=== PATIENT | male | born 1965 | race Caucasian/White ===

== ENCOUNTER 2019-03-13 17:11 | Emergency (ER) | payer BC, SELFPAY ==
[2019-03-13 17:13] VITALS: BP 176/120; PULSE 86; RESP 18; TEMP 36.4; O2SAT 100; BMI 27.8
--- NOTE | 2019-03-13 17:43 | CT_ITS ---
STUDY: CT ABDOMEN AND PELVIS WITHOUT CONTRAST REASON FOR EXAM: Male, 54 years old. Nausea and vomiting and abdominal pain RADIATION DOSAGE (If Supplied By Facility): DLP = ( 798.68 ) mGycm TECHNIQUE: Transaxial images were obtained from the dome of the diaphragm to the symphysis pubis without oral contrast, and without intravenous contrast. Sagittal and coronal images were reconstructed. Individualized dose optimization techniques were used for this CT. COMPARISON: None. FINDINGS: Evaluation of the abdominal viscera is limited in the absence of intravenous contrast. The visualized lung bases are clear. The visualized portions of the heart and pericardium are within normal limits. There are no calcified gallstones present. The liver demonstrates an unremarkable unenhanced appearance. The spleen is normal in size. The pancreas demonstrates an unremarkable unenhanced appearance. The adrenal glands are within normal limits. There are no obstructing renal stones. There is a right renal midpole 3.4 cm cyst and a left renal midpole 1.4 cm hypodensity, likely representing a cyst. Left renal mid pole cortical calcifications are present measuring up to 1 cm. There is no hydronephrosis. Normal visualized stomach. There is no evidence of bowel obstruction. Colonic diverticulosis is present. There is uniform wall thickening of the sigmoid colon. The appendix is not visualized, but there are no findings to suggest acute appendicitis. The aorta is normal in caliber. There is no abdominal or pelvic free air, free fluid, fluid collection or lymphadenopathy. There are no destructive osseous lesions. Multilevel degenerative changes are present at the spine. L5-S1 fusion present. CT/Abdomen/Pelvis without Cont IMPRESSION: Colonic diverticulosis with uniform wall thickening of the sigmoid colon. Considerations include inflammation/colitis, nondistention, and less likely neoplasm. Clinical correlation and compliance with sigmoidoscopy/colonoscopy schedule is recommended. Probable bilateral renal cysts and left renal cortical calcifications. Ultrasound is suggested for confirmation. Electronically Signed: Harjinder Serrano, at 18:50 EST Tel , Service support ,
--- NOTE | 2019-03-13 17:43 | EKG12_ITS ---
Test Reason : CP/EPIGASTRIC PAIN Blood Pressure : / mmHG Vent. Rate : 090 BPM Atrial Rate : 090 BPM P-R Int : 182 ms QRS Dur : 100 ms QT Int : 386 ms P-R-T Axes : 024 -40 059 degrees QTc Int : 472 ms Normal sinus rhythm Left axis deviation Moderate voltage criteria for LVH, may be normal variant Nonspecific T wave abnormality Prolonged QT Abnormal ECG Confirmed by CANDACE ELLIS ([id number]), website/blog editor RONALD CLARK ([id number]) on 03/15/2019 8:27:33 AM Referred By: JOSE/EVERT Confirmed By:CANDACE ELLIS
[2019-03-13 17:55] LABS: Absolute Lymphocyte Count 1.71 X10^3/uL (0.83-4.51); Absolute Neutrophil Count 10.1 X10^3/uL (2.0-7.7); Basophil# 0.04 X10^3/uL; Basophil% 0.3 % (0-1); Eosinophil# 0.19 X10^3/uL; Eosinophils% 1.5 % (0-5); Hematocrit 45.6 % (40-54); Hemoglobin 15.5 g/dL (13.0-16.5); Lymphocyte # 1.71 X10^3/ul (4.0); Lymphocyte % 13.5 % (19-41); Mean Corpuscular Hgb 32.4 pg (27.0-32.0); Mean Corpuscular Volume 95.4 fL (80-94); Mean Platelet Vol. 9.6 fl (6.2-12.0); Monocyte# 0.57 X10^3/uL; Monocyte% 4.5 % (0-10); NRBC Flagged by Analyzer 0 % (0-5); Neutrophil # 10.06 X10^3/uL (2.7-7.7); Neutrophil % 79.7 % (47-70); Platelet Count 254 K/mm3 (150-450); RBC Distribution Width CV 13.2 % (11.6-14.6); RBC Distribution Width SD 46.9 fl (35.1-43.9); Red Blood Count 4.78 M/mm3 (4.6-6.2); White Blood Count 12.6 K/mm3 (4.4-11.0)
[2019-03-13] MEDS: HYDROmorphone 1 MG/ML Syringe IV (17:59)
[2019-03-13] MEDS: Ondansetron 4 MG/2 ML Vial IV (17:59)
[2019-03-13] MEDS: 0.9% Normal Saline 1,000 ML 1000 ML IV (18:00)
[2019-03-13 18:08] LABS: ALB/GLOB Ratio 1.2 RATIO (0.9-2.4); AST(SGOT) 17 U/L (15-37); Alanine Aminotransfer ALT/SGPT 24 U/L (16-61); Albumin, Serum 4.3 g/dL (3.2-5.0); Alkaline Phosphatase 62 U/L (45-117); Anion Gap 7 (5-15); BUN 22 mg/dL (7-18); BUN/Creat Ratio 17.7 RATIO (10-20); Calcium,Total 9.5 mg/dL (8.5-10.1); Chloride 106 mmol/L (98-107); Creatinine, Serum 1.24 mg/dL (0.70-1.30); EST Glomerular Filtration Rate 64 mL/min (>60); Est Glom Filt Rate - Afr Amer 78 mL/min (>60); Estimated Creatinine Clearance 70.85 ml/min; Globulin 3.5 g/dL (2.2-4.2); Glucose 114 mg/dL (74-106); Lipase 184 U/L (73-393); Potassium 3.6 mmol/L (3.5-5.1); Protein, Total 7.8 g/dL (6.4-8.2); Sodium Level 140 mmol/L (136-145)
[2019-03-13 18:13] VITALS: PULSE 91; RESP 16; O2SAT 98
[2019-03-13 18:41] LABS: Lactic Acid 2.6 mmol/L (0.4-1.9)
[2019-03-13 18:43] VITALS: BP 156/115; PULSE 97; RESP 15; TEMP 37.3; O2SAT 96
--- NOTE | 2019-03-13 18:49 | ED.RN ---
DR CONSULTED ABOUT POSSIBILITY OF SEPSIS. STATES THAT THERE IS NO SOURCE AT THIS TIME. NO ADDITIONAL ORDERS PLACED AT THIS TIME. Burke ORTIZ RN [id number]
--- NOTE | 2019-03-13 18:50 | RAD_ITS ---
STUDY: X-RAY CHEST REASON FOR EXAM: Male, 54 years old. Chest pain TECHNIQUE: Frontal view of the chest COMPARISON: None. FINDINGS: The lungs are clear. There are no pleural effusions. There is no pneumothorax. The heart is normal in size. The visualized osseous structures are within normal limits. RAD/Chest 1 View (Portable) IMPRESSION: No acute thoracic pathology. Electronically Signed: Harjinder Serrano, at 19:34 EST Tel , Service support ,
[2019-03-13 19:36] VITALS: BP 146/107; PULSE 95; RESP 16; O2SAT 93
[2019-03-13 20:03] VITALS: BP 150/107; PULSE 98; PULSE 99; RESP 21; TEMP 37.2; O2SAT 96; O2SAT 97
--- NOTE | 2019-03-13 20:09 | ED.DCSUM_ITS ---
- ER Visit Summary Date of Service: 03/13/19 Chief Complaint: [Abdominal pain] History of Present Illness: The patient is a 54 M [the emergency department complaint of epigastric abdominal pain that started about 8 months ago initially. Patient has recurrent episodes of severe pain that is in the epigastric region which causes him to vomit for day or 2 and then symptoms resolved. Patient states that over the last 3 days he is vomited multiple times and continues to have crampy severe epigastric pain. He denies any blood in stool or black tarry stool. He denies any hematemesis. He denies any real chest discomfort although sometimes he feels like he has some acid coming up into his chest. Patient has no medical history. Patient is a moderate alcohol drinker. Patient has not had any prior abdominal surgeries although he has had a back surgery.] Physical Examination: [HEENT-PERRLA, EOMI. Cranial nerves II through XII grossly intact. TMs clear. Mucous membranes moist. No adenopathy. Cardiovascular-regular rate and rhythm without murmur or ectopy Lungs-clear to auscultation, chest wall stable without crepitus or subcu emphysema Abdomen-normoactive bowel sounds, soft. Patient has tenderness over the epigastric region with guarding. There is no rebound, rigidity, or cranial signs. Extremities-intact ?4, normal range of motion, normal pulses, atraumatic] Test Results: [EKG obtained on arrival showed a sinus rhythm with a ventricular rate of [address] changes. Troponin was less than 0.015. CBC with differential showed a white count of 12.6, hemoglobin 15.5, hematocrit 46, platelets 254. Chemistries unremarkable. BUN was 22 and creatinine 1.24. LFTs unremarkable. Lipase was 184. Lactate was 2.6. CT scan of the abdomen pelvis showed thickening of the sigmoid colon which could represent nondistention ve rsus colitis versus inflammation versus neoplasm. Patient also had a renal cyst and recommended obtaining potential outpatient ultrasound to evaluate further.] Emergency Department Course and Treatment: [Patient had an IV line established. Patient was medicated with a milligram of Dilaudid and 4 mg of Zofran IV. Patient was given a liter of the same fluid bolus. Patient felt significantly improved.] Treatment Plan: [I discussed with patient outpatient treatment versus admission for symptom control however patient would prefer to go home. I will give him a referral to general surgeon on-call as he may require further evaluation such as colonoscopy and endoscopy. Patient will be started on Prevacid. Patient will be given Zofran for nausea.] Patient advised to quit drinking. Disposition: [Discharged home in stable condition.] Impression: [Abdominal pain-etiology uncertain Gastritis] This note was generated with [employer] dictation software. It may contain incorrect words, spelling, and punctuation that were not noted in review of the chart prior to signing ED Disposition - Plan for ED Patient: Referrals: Care Physician,No Primary [Primary Care Provider] -
--- NOTE | 2019-03-13 20:13 | ED.DEP ---
ED Disposition - Plan for ED Patient: Instructions: EPIGASTRIC PAIN (Uncertain cause), ABDOMINAL PAIN, Unkown Cause, (Male) Prescriptions: Lansoprazole [Prevacid] 30 mg PO DAILY #30 capsule Ondansetron [Zofran Odt] 4 mg PO Q8H PRN PRN #10 tablet PRN Reason: Nausea Referrals: Care Physician,No Primary [Primary Care Provider] - Brandon Bliss MD [STAFF PHYSICIAN] - Len Shelton MD [STAFF PHYSICIAN] - 3-5 Days
[2019-03-13 20:27] VITALS: BP 150/107; PULSE 95; RESP 18; O2SAT 97
[2019-03-13 22:10] LABS: Reflex Lactate? Y
== END 2019-03-13 20:28 | disposition home or self-care (01) ==
LOC: ED 18:03
PROVIDERS: Emergency Provider Emergency Medicine
DX: R10.9 Unspecified abdominal pain (principal); K29.70 Gastritis, unspecified, without bleeding
CPT/HCPCS: 71045; 74176; 80053; 83605; 83690; 84484; 85025; 93005; 96361; 96374; 96375; 99284; J7030; A4216; J2405

== ENCOUNTER → 2019-03-19 08:51 | Outpatient (CLI) | payer BC, SELFPAY ==
[2019-03-19 08:23] VITALS: BMI 27.8
--- NOTE | 2019-03-19 08:52 | US_ITS ---
STUDY: ABDOMINAL ULTRASOUND - RIGHT UPPER QUADRANT REASON FOR VISIT: Male, 54 years old EPIGASTRIC PAIN TECHNIQUE: Ultrasound evaluation of the right upper quadrant was performed with real-time and static casper-scale imaging. TECHNICAL QUALITY: Adequate. COMPARISON: None. FINDINGS: Liver: The liver measures 15.9 cm. There is normal echogenicity of the liver. The bile ducts are within normal limits. There is hepatic color flow. The direction of portal flow is hepatopetal. There is no demonstrated mass lesion. Gallbladder: Normal distended gallbladder. The gallbladder wall measures 3.0 mm. There is a negative sonographic Stewart''s sign. There is no pericholecystic fluid. There are no gallstones. Common Bile Duct (C.B.D.): The common bile duct measures 5.0 mm. Pancreas: Normal size of the head, body and tail of the pancreas. There is normal echogenicity of the pancreas. There is no demonstrated pancreatic mass or cyst. Right Kidney: Normal size of the right kidney. The right kidney measures 10.2 cm x 6.6 cm x 6.3 cm. Normal renal cortex. The right cortex measures 1.5 cm. There is a 3.3 cm x 3.4 cm x 3.5 cm right renal cyst. There is no right hydronephrosis. US/Abdomen Limited IMPRESSION: Right renal cyst. Electronically Signed: Noel Churchill, at 10:12 EST , Service support ,
== END ==
LOC: US 08:52
PROVIDERS: Referring Provider Surgery; Visit Provider Surgery
DX: R10.13 Epigastric pain (principal)
CPT/HCPCS: 76705

== ENCOUNTER 2019-03-30 08:43 | Day surgery (SDC) | payer BC, SELFPAY ==
[2019-03-19 08:23] VITALS: BMI 27.8
--- NOTE | 2019-03-21 09:07 | HP_ITS ---
Intake Vital Signs 03/19/19 Height 5 ft 11 in 03/19/19 Weight: 205 lb 03/19/19 BMI 28.5 03/19/19 BP 179/112 H 03/19/19 Blood Pressure Location Rt brachial 03/19/19 Position Sitting 03/19/19 Respiration 18 03/19/19 Pulse 99 03/19/19 Pulse Source Monitor 03/19/19 Temp 98.2 F 03/19/19 Temp Source Oral 03/19/19 Pulse Oximetry (%) 97 03/19/19 Oxygen Delivery Method room air Intake Visit Reasons: EPIGASTRIC PAIN Chief Complaint: Epigastric pain Pearl Peller Required: No Is patient in pain?: No Allergies No Known Allergies Allergy (Verified 03/19/19 08:23) Medications Lansoprazole [Prevacid] 30 mg PO DAILY #30 cap 03/13/19 [Rx Confirmed 03/19/19] Ondansetron [Zofran Odt] 4 mg PO Q8H PRN PRN #10 tab 03/13/19 [Rx Confirmed 03/19/19] lisinopril 5 mg tablet 5 mg PO DAILY #60 tab 03/19/19 [Rx Confirmed 03/19/19] PFSH Medical History GERD (gastroesophageal reflux disease) (Acute) Nausea & vomiting (Acute) Epigastric pain (Acute) Surgical History (Updated 03/19/19 @ 08:20 by Yesenia Carroll) History of spinal surgery (Acute) Social History (Updated 03/21/19 @ 09:07 by Brandon Bliss MD) Smoking Status: Current every day smoker alcohol intake: current alcohol intake frequency: 0-2 drinks per day substance use type: does not use HPI HPI HPI: GRETCHEN BUCKLEY, is a 54 M who presents to the office today for HPI HPI Surgical H&P: Yes HPI: GRETCHEN BUCKLEY, is a 54 M who presents to the office today for Epigastric pain and nausea. The patient reports that he has been having vomiting for a year. He reports epigastric pain as well.He is on a PPI. ROS General General: No weight change, appetite, fatigue, colon cancer, breast cancer or weakness HEENT HEENT: No difficulty swallowing, eye injury, eye surgery, swollen glands or hoarseness Endo Endocrine: No thyroid disease, diabetes mellitus, thyroid cancer, Hair loss, heat intolerance or cold intolerance Skin Skin: No rash or changing moles Breast Breast: No left breast lump, right breast lump, nipple discharge, breast pain, abnormal mammogram, abnormal US or breast enlargement Musc Musculoskeletal: No back problems, arthritis, rheumatoid arthritis, gout or joint pain Cardio Cardiovascular: No murmur, pacemaker, heart disease, atrial fibrillation, high blood pressure, heart attack, heart stent, palpitations, shortness of breat with exertion or chest pain Psych Psychiatric: No depression, anxiety or hearing voices Resp Respiratory: No shortness of breath, No sleep apnea, No cough, No COPD, No asthma, No emphysema, No wheezing Gastro Gastrointestinal: Yes abdominal pain, Yes nausea or vomiting, Yes diarrhea, No constipation, No blood in stool, Yes acid reflux, No hemorrhoids, No ulcers, No gallbladder problem, No black,tarry stools Robby Hematologic: No blood thinners, No blood disorders, No bleeding, No anemia, No blood clots Neuro Neurologic: No system reviewed and no additional complaints, except as docu, No as per HPI, No abnormal walking, No abnormal hearing, No abnormal movements, No abnormal speech, No behavioral changes, No burning sensations, No confusion, No seizure-like activity, No unsteadiness, No dizziness, No localized weakness, No frequent falls, No headache(s), No lack of coordination, No loss of vision, No memory loss, No numbness, No other visual disturbances, No radiating pain, No restless legs, No sensory deficit, No fainting, No tingling, No tremor(s), No weakness, No other Exam Const General: cooperative Orientation: alert, oriented x3 HENMT Head: normal to inspection Ears: hearing grossly normal bilaterally Eyes General: appearance normal, both eyes and all related structures Visual De La O: normal visual de la o by confrontation Neck Neck: normal visual inspection Chest Chest palpation & inspection: normal inspection of the chest Breast Palpation: No nipple discharge Resp Effort & Inspection: normal respiratory effort Auscultation: clear to auscultation bilaterally Cardio Rate: regular rate Rhythm: regular rhythm Heart Sounds: no murmurs GI Inspection: non-distended Palpation: soft, nontender Musc Cervical Spine: normal cervical lordosis, cervical ROM normal Skin General: no rashes or lesions noted Neuro General: alert, oriented x3 Cranial Nerves: CN's II-XI intact bilaterally Cognition: normal cognition Extrem General: normal to inspection, full ROM Psych Appearance: grossly normal Affect: normal affect Assessment & Plan Problems 1. Nausea and vomiting, intractability of vomiting not specified, unspecified vomiting type R11.2 2. Epigastric pain R10.13 3. Gastroesophageal reflux disease, esophagitis presence not specified K21.9 4. Hypertension, unspecified type I10 Plan The patient has been having epigastric pain as well as nausea and vomiting for the last year. He recently has CT scan which showed thickening of his sigmoid colon. The patient reports he is never had an EGD or colonoscopy. He denies any blood in his stool. I sent the patient for an ultrasound of his gallbladder which revealed no gallstones. His wall thickness was normal. The patient had an elevated white count on the when he was in the emergency department. He is currently having no fevers or chills and says that the pain he was having then has gone away. I will perform an EGD and colonoscopy due to the wall thickening of the sigmoid colon and the epigastric pain. If these are normal I will perform a HIDA exam to see if there is any dysfunction of the gallbladder. The patient also has a very high blood pressure. He does not have a PCP and he has been referred. He is seeing Dr. Shelton later this week. I will start him on a low-dose of lisinopril to see if this starts helping and this may be changed by his PCP later. I explained endoscopy in detail to the patient. I explained the risks including but not limited to stroke or heart attack with anesthesia, perforation of the GI tract, bleeding, infection. I explained that any of these could necessitate further emergency surgery. The patient understands and all questions were answered sufficiently. The patient wishes to proceed with procedure. Brandon Bliss MD Pager: [facility] [address] [place] [address], [address] [place] [address] Office: Medications New: lisinopril 5 mg PO DAILY 60 tabs 0RF Coding Level of Care Code Off vis,new,level 4 Diagnoses Nausea and vomiting, intractability of vomiting not specified, unspecified vomiting type R11.2 ??Vomiting Intractability: unspecified ??Vomiting type: unspecified Epigastric pain R10.13 Gastroesophageal reflux disease, esophagitis presence not specified K21.9 ??Esophagitis presence: esophagitis presence not specified Hypertension, unspecified type I10 ??Hypertension type: unspecified 03/21/19 0907 <Electronically signed by Brandon bauer MD> Date _ Brandon Bliss MD I have re-examined the patient. There are no clinical changes since date of exam.
[2019-03-30] VITALS (21 sets, daily range): BP systolic 130–178; BP diastolic 93–142; PULSE 67–97; RESP 16–18; TEMP 36.4–36.8; O2SAT 16–100; BMI 28.3
[2019-03-30] MEDS: Lactated Ringers 1,000 ML 75 ML IV ×2 (09:25→11:15)
--- NOTE | 2019-03-30 10:00 | IMM_PTH ---
PATIENT: GRETCHEN BUCKLEY Jr. LOC: EN U#:[id number] AGE/SX: 54/M ROOM: RE03/30/[address]: Dr. Brandon Bliss MD : 1965 BED: DIS: 03/30/2019 SPEC #: [id number] RECD: 03/30/19 15:02 STATUS: ANASTASIA GAMBLE #: [id number] NELLIE: 03/30/19 10:[address]: Brandon Bliss DEPT: IMMUNOHISTOCHEMISTRY RECD BY: Caitie Benito ENTERED: 03/30/19 15:02 SP TYPE: IMMUNO OTHR DR: No Primary Care Phys Tissues: A - Stomach, NOS Procedures: H Pylori (initial) PHYSICIAN & INSTITUTION [place] [phone] SPECIMEN INFORMATION: Tissue Source: A - Antral biopsy Clinical Info: Epigastric pain; nausea/vomiting; GERD; sigmoid colon wall thickening on CT Specimen Number: [id number] CPT code: 21781 METHODOLOGY: Deparaffinized sections of prefer/formalin-fixed tissue or PAP/DQ stained slides are incubated with monoclonal/polyclonal antibodies/oligonucleotide probes. Localization is made via biotin free immunoperoxidase method. Appropriate controls are performed and reacted as expected. Results on target cell population are indicated in the following table: RESULTS: ANTIBODY / CLONE RESULT Block A H Pylori (polyclonal) negative These tests were developed and their performance characteristics determined by [facility]. They may not have been cleared or approved by the U.S. Food and Drug Administration. The FDA has determined that such clearance or approval is not necessary. The above immunohistochemical/dualISH markers are ordered and reviewed by the Pathologist. INTERPRETATION: A. Antral biopsy: Negative for Helicobacter pylori organisms. SJ:tanisha 04/02/19
--- NOTE | 2019-03-30 10:00 | EGD_PTH ---
PATIENT: GRETCHEN BUCKLEY Jr. LOC: EN U#:[id number] AGE/SX: 54/M ROOM: RE03/30/[address]: Dr. Brandon Bliss MD : 1965 BED: DIS: 03/30/2019 SPEC #: [id number] RECD: 03/30/19 13:30 STATUS: ANASTASIA TYE #: [id number] NELLIE: 03/30/19 10:[address]: Brandon Bliss DEPT: SURGICAL PATHOLOGY RECD BY: Kiana Espinoza ENTERED: 03/30/19 14:17 SP TYPE: EGD BIOPSY OTHR DR: Yancy Primary Care Phys Tissues: A - Gastric mucous membrane B - POLYP C - Sigmoid colon biopsy Procedures: Surgery Specimen Level IV HEADER OPERATION: Colonoscopy, EGD ([facility]) PRE-OP DIAGNOSIS: Epigastric pain, nausea/vomiting, GERD, sigmoid colon wall thickening on CT TISSUE SUBMITTED: A - Antral biopsy for H. pylori and pathology, B - Polyp at 60 cm, C - Sigmoid polyp biopsies MICROSCOPIC DIAGNOSIS A. Antral biopsy: Mild gastritis. See microscopic description and comment. B. Polyp at 60 cm, polypectomy: Tubulovillous adenoma. C. Sigmoid colon, biopsy: A fragment of colonic mucosa, no pathologic diagnosis. SJ:rg 04/02/19 COMMENT A. The results of immunohistochemistry for Helicobacter pylori will be reported separately ([id number]). MICROSCOPIC DESCRIPTION Slides are reviewed. A. The specimen shows fragments of gastric mucosa with chronic inflammatory cell infiltrates in the lamina propria consisting of lymphocytes and plasma cells, consistent with mild chronic gastritis. GROSS DESCRIPTION A - Received in fixative is one container labeled with the patient's name and designated antral biopsy. The specimen consists of two irregular fragments of light everett soft tissue that in aggregate measure 0.5 x 0.3 x 0.1 cm. The specimen is totally submitted in one cassette. B - Received in fixative is one container labeled with the patient's name and designated polyp at 60 cm. The specimen consists of a pedunculated polyp measuring 1.5 x 1.2 x 0.7 cm. The presumed stalk at margin of resection is inked. The specimen is bisected and totally submitted in one cassette. C - Received in fixative is one container labeled with the patient's name and designated sigmoid colon biopsy. The specimen consists of one irregular fragment of light everett soft tissue that measures 0.3 x 0.3 x <0.1 cm. The specimen is totally submitted in one cassette. / AM:tanisha 03/30/19 TC:1 CPT: 58005 x3
--- NOTE | 2019-03-30 11:07 | OP.EGD_ITS ---
Patient Name: Israel Aponte Procedure Date: 03/30/2019 10:00 AM Date of : 1965 Age: 54 Procedure: Upper GI endoscopy Indications: Epigastric abdominal pain Providers: Brandon Bliss MD Referring MD: Brandon Bliss MD Medicines: Monitored Anesthesia Care Patient Profile: This is a 54 year old male. Refer to note in patient chart for documentation of history and physical. Complications: No immediate complications. Estimated blood loss: Minimal. Procedure: Pre-Anesthesia Assessment: - Prior to the procedure, a History and Physical was performed, and patient medications and allergies were reviewed. The patient's tolerance of previous anesthesia was also reviewed. The risks and benefits of the procedure and the sedation options and risks were discussed with the patient. All questions were answered, and informed consent was obtained. Prior Anticoagulants: The patient has taken no previous anticoagulant or antiplatelet agents. After reviewing the risks and benefits, the patient was deemed in satisfactory condition to undergo the procedure. After obtaining informed consent, the endoscope was passed under direct vision. Throughout the procedure, the patient's blood pressure, pulse, and oxygen saturations were monitored continuously. The gastroscope was introduced through the mouth, and advanced to the second part of duodenum. The upper GI endoscopy was accomplished without difficulty. The patient tolerated the procedure well. Scope In: 10:14:17 AM Scope Out: 10:17:40 AM Total Procedure Duration Time 0 hours 3 minutes 23 seconds Findings: A small hiatal hernia was present. The in the stomach was normal. Biopsies were taken with a cold forceps for Helicobacter pylori testing. The in the duodenum was normal. Impression: - Small hiatal hernia. - Normal stomach. Biopsied. - Normal. Recommendation: - Await pathology results. - Discharge patient to home. - Resume previous diet. - Continue present medications. Procedure Code(s): --- Professional --- 56566, Esophagogastroduodenoscopy, flexible, transoral; with biopsy, single or multiple Diagnosis Code(s): --- Professional --- K44.9, Diaphragmatic hernia without obstruction or gangrene R10.13, Epigastric pain CPT copyright 2017 [employer]. All rights reserved. The codes documented in this report are preliminary and upon childhood teacher review may be revised to meet current compliance requirements. Brandon Bliss MD 03/30/2019 11:06:57 AM This report has been signed electronically. Number of Addenda: 0 Note Initiated On: 03/30/2019 10:00 AM
--- NOTE | 2019-03-30 11:07 | OP.CCLET_ITS ---
03/30/2019 No Primary Care Physician Re : Upper GI endoscopy procedure for Israel Aponte [facility] Physician This procedure was performed on Saturday, March 30, 2019. My impressions and recommendations are as follows: Impressions : - Small hiatal hernia. - Normal stomach. Biopsied. - Normal. Recommendations : - Await pathology results. - Discharge patient to home. - Resume previous diet. - Continue present medications. My findings are described in the full procedure note, which is enclosed. If I can be of further assistance, please feel free to contact me at Doctor phone number(s): , Work: . Sincerely, Brandon Bliss MD 03/30/2019 11:06:57 AM This report has been signed electronically.
--- NOTE | 2019-03-30 11:11 | OP.COLON_ITS ---
Patient Name: Israel Aponte Procedure Date: 03/30/2019 10:19 AM Date of : 1965 Age: 54 Procedure: Colonoscopy Indications: Abnormal CT of the GI tract Providers: Brandon Bliss MD Referring MD: Brandon Bliss MD Medicines: Monitored Anesthesia Care Patient Profile: This is a 54 year old male. Refer to note in patient chart for documentation of history and physical. Last Colonoscopy: none. The patient's first colonoscopy is today. Complications: No immediate complications. Procedure: Pre-Anesthesia Assessment: - Prior to the procedure, a History and Physical was performed, and patient medications and allergies were reviewed. The patient's tolerance of previous anesthesia was also reviewed. The risks and benefits of the procedure and the sedation options and risks were discussed with the patient. All questions were answered, and informed consent was obtained. Prior Anticoagulants: The patient has taken no previous anticoagulant or antiplatelet agents. After reviewing the risks and benefits, the patient was deemed in satisfactory condition to undergo the procedure. After I obtained informed consent, the scope was passed under direct vision. Throughout the procedure, the patient's blood pressure, pulse, and oxygen saturations were monitored continuously. The colonoscope was introduced through the anus and advanced to the cecum, identified by appendiceal orifice and ileocecal valve. The colonoscopy was technically difficult and complex due to restricted mobility of the colon. The quality of the bowel preparation was good. Scope In: 10:20:55 AM Scope Withdrawal Time 0 hours 23 minutes 42 seconds Scope Out: 11:00:30 AM Total Procedure Duration Time 0 hours 39 minutes 35 seconds Findings: A polyp was found in the descending colon. The polyp was pedunculated. The polyp was removed with a hot snare. Resection and retrieval were complete. The sigmoid colon was very tight with a small lumen. For the most part the mucosa was normal. There was a pedunculated polyp in the sigmoid which could not be removed due to significant lumen restriction. Impression: - One polyp in the descending colon, removed with a hot snare. Resected and retrieved. Recommendation: - Discharge patient to home. - Resume previous diet today. - Continue present medications. - Await pathology results. - Refer to a pear picker at appointment to be scheduled. - Repeat colonoscopy at next available appointment (within 3 months) for surveillance after piecemeal polypectomy. Procedure Code(s): --- Professional --- 06233, Colonoscopy, flexible; with removal of tumor(s), polyp(s), or other lesion(s) by snare technique Diagnosis Code(s): --- Professional --- D12.4, Benign neoplasm of descending colon R93.3, Abnormal findings on diagnostic imaging of other parts of digestive tract CPT copyright 2017 [employer]. All rights reserved. The codes documented in this report are preliminary and upon electrical maintenance technician review may be revised to meet current compliance requirements. Brandon Bliss MD 03/30/2019 11:10:51 AM This report has been signed electronically. Number of Addenda: 0 Note Initiated On: 03/30/2019 10:19 AM
--- NOTE | 2019-03-30 11:11 | OP.CCLET_ITS ---
03/30/2019 No Primary Care Physician Re : Colonoscopy procedure for Israel Aponte [facility] Physician This procedure was performed on Saturday, March 30, 2019. My impressions and recommendations are as follows: Impressions : - One polyp in the descending colon, removed with a hot snare. Resected and retrieved. Recommendations : - Discharge patient to home. - Resume previous diet today. - Continue present medications. - Await pathology results. - Refer to a jail keeper at appointment to be scheduled. - Repeat colonoscopy at next available appointment (within 3 months) for surveillance after piecemeal polypectomy. My findings are described in the full procedure note, which is enclosed. If I can be of further assistance, please feel free to contact me at Doctor phone number(s): , Work: . Sincerely, Brandon Bliss MD 03/30/2019 11:10:51 AM This report has been signed electronically.
== END 2019-03-30 13:11 | disposition home or self-care (01) ==
LOC: EN 08:43 → AC 08:44
PROVIDERS: Referring Provider Surgery; Visit Provider Surgery
PROC: 0DJD8ZZ Inspection of Lower Intestinal Tract, Via Natural or Artificial Opening Endoscopic (ICD-10-PCS; CPT 45378; principal; 2019-03-30 09:55)
DX: D12.4 Benign neoplasm of descending colon (principal); R93.3 Abnormal findings on diagnostic imaging of other parts of digestive tract; K29.70 Gastritis, unspecified, without bleeding; K44.9 Diaphragmatic hernia without obstruction or gangrene; R10.13 Epigastric pain; R11.2 Nausea with vomiting, unspecified; K21.9 Gastro-esophageal reflux disease without esophagitis; I10 Essential (primary) hypertension; F17.200 Nicotine dependence, unspecified, uncomplicated; Z79.899 Other long term (current) drug therapy
CPT/HCPCS: 43239; 45385; 88305; 88342; J7120; J1610; J2405

== ENCOUNTER → 2019-06-11 15:32 | Outpatient (CLI) | payer BC, SELFPAY ==
[2019-03-30 09:13] VITALS: BMI 28.3
[2019-06-11 17:50] LABS: Absolute Lymphocyte Count 2.24 X10^3/uL (0.83-4.51); Basophil# 0.04 X10^3/uL; Basophil% 0.3 % (0-1); Eosinophil# 0.11 X10^3/uL; Eosinophils% 0.7 % (0-5); Hematocrit 52.1 % (40-54); Lymphocyte # 2.24 X10^3/ul (4.0); Lymphocyte % 15.2 % (19-41); Mean Corp Hgb Conc 34.5 g/dL (32-36); Mean Corpuscular Hgb 32.3 pg (27.0-32.0); Mean Corpuscular Volume 93.4 fL (80-94); Mean Platelet Vol. 10.2 fl (6.2-12.0); Monocyte# 1.32 X10^3/uL; NRBC Flagged by Analyzer 0 % (0-5); Neutrophil # 10.95 X10^3/uL (2.7-7.7); Neutrophil % 74.3 % (47-70); Platelet Count 314 K/mm3 (150-450); RBC Distribution Width CV 13.3 % (11.6-14.6); RBC Distribution Width SD 45.5 fl (35.1-43.9); Red Blood Count 5.58 M/mm3 (4.6-6.2); White Blood Count 14.7 K/mm3 (4.4-11.0)
[2019-06-11 18:15] LABS: ALB/GLOB Ratio 1.2 RATIO (0.9-2.4); AST(SGOT) 11 U/L (15-37); Alanine Aminotransfer ALT/SGPT 22 U/L (16-61); Albumin, Serum 4.6 g/dL (3.2-5.0); Alkaline Phosphatase 71 U/L (45-117); Anion Gap 11 (5-15); BUN 64 mg/dL (7-18); Chloride 94 mmol/L (98-107); Creatinine, Serum 1.88 mg/dL (0.70-1.30); EST Glomerular Filtration Rate 40 mL/min (>60); Est Glom Filt Rate - Afr Amer 48 mL/min (>60); Glucose 125 mg/dL (74-106); Potassium 3.6 mmol/L (3.5-5.1); Protein, Total 8.6 g/dL (6.4-8.2); Sodium Level 132 mmol/L (136-145)
[2019-06-12 10:46] LABS: Pathologist Review Reviewed
== END ==
PROVIDERS: PCP Family Medicine; Referring Provider Family Medicine; Visit Provider Family Medicine
DX: R42 Dizziness and giddiness (principal)
CPT/HCPCS: 36415; 80053; 85025

== ENCOUNTER → 2019-08-15 10:08 | Outpatient (CLI) | payer BC, SELFPAY ==
[2019-03-30 09:13] VITALS: BMI 28.3
[2019-08-15 12:39] LABS: Absolute Lymphocyte Count 1.85 X10^3/uL (0.83-4.51); Absolute Neutrophil Count 4.1 X10^3/uL (2.0-7.7); Basophil# 0.04 X10^3/uL; Basophil% 0.6 % (0-1); Eosinophil# 0.66 X10^3/uL; Eosinophils% 9.2 % (0-5); Hematocrit 43.5 % (40-54); Hemoglobin 13.7 g/dL (13.0-16.5); Lymphocyte # 1.85 X10^3/ul (4.0); Lymphocyte % 25.8 % (19-41); Mean Corp Hgb Conc 31.5 g/dL (32-36); Mean Corpuscular Hgb 31.5 pg (27.0-32.0); Mean Platelet Vol. 10.4 fl (6.2-12.0); Monocyte# 0.53 X10^3/uL; Monocyte% 7.4 % (0-10); NRBC Flagged by Analyzer 0 % (0-5); Neutrophil # 4.05 X10^3/uL (2.7-7.7); Neutrophil % 56.6 % (47-70); Platelet Count 256 K/mm3 (150-450); RBC Distribution Width CV 13.3 % (11.6-14.6); RBC Distribution Width SD 49.1 fl (35.1-43.9); Red Blood Count 4.35 M/mm3 (4.6-6.2); White Blood Count 7.2 K/mm3 (4.4-11.0)
[2019-08-15 13:11] LABS: ALB/GLOB Ratio 1.2 RATIO (0.9-2.4); AST(SGOT) 13 U/L (15-37); Alanine Aminotransfer ALT/SGPT 25 U/L (16-61); Albumin, Serum 3.9 g/dL (3.2-5.0); Alkaline Phosphatase 66 U/L (45-117); Anion Gap 7 (5-15); BUN 16 mg/dL (7-18); BUN/Creat Ratio 17.6 RATIO (10-20); Calcium,Total 9.2 mg/dL (8.5-10.1); Chloride 101 mmol/L (98-107); Creatinine, Serum 0.91 mg/dL (0.70-1.30); EST Glomerular Filtration Rate 92 mL/min (>60); Est Glom Filt Rate - Afr Amer 111 mL/min (>60); Globulin 3.3 g/dL (2.2-4.2); Glucose 96 mg/dL (74-106); Potassium 4.1 mmol/L (3.5-5.1); Protein, Total 7.2 g/dL (6.4-8.2); Sodium Level 137 mmol/L (136-145)
== END ==
PROVIDERS: PCP Family Medicine; Visit Provider Family Medicine
DX: R63.4 Abnormal weight loss (principal); R11.10 Vomiting, unspecified
CPT/HCPCS: 36415; 80053; 84443; 84481; 85025

== ENCOUNTER → 2019-12-19 09:06 | Outpatient (CLI) | payer BC, SELFPAY ==
[2019-03-30 09:13] VITALS: BMI 28.3
[2019-12-19 10:54] LABS: Anion Gap 6 (5-15); BUN 14 mg/dL (7-18); BUN/Creat Ratio 13.2 RATIO (10-20); Calcium,Total 9.5 mg/dL (8.5-10.1); Chloride 106 mmol/L (98-107); Cholesterol 219 mg/dL (200); Creatinine, Serum 1.06 mg/dL (0.70-1.30); EST Glomerular Filtration Rate 77 mL/min (>60); Est Glom Filt Rate - Afr Amer 93 mL/min (>60); Glucose 95 mg/dL (74-106); High Density Lipoprotein 47 mg/dL; Sodium Level 138 mmol/L (136-145); Triglycerides 159 mg/dL; Very Low Density Lipoprotein 32 mg/dL (5-40)
== END ==
PROVIDERS: PCP Family Medicine; Referring Provider Family Medicine; Visit Provider Family Medicine
DX: I10 Essential (primary) hypertension (principal)
CPT/HCPCS: 36415; 80048; 80061

== ENCOUNTER → 2020-06-18 08:55 | Outpatient (CLI) | payer BC, SELFPAY ==
[2019-03-30 09:13] VITALS: BMI 28.3
[2020-06-18 10:46] LABS: Anion Gap 4 (5-15); BUN 20 mg/dL (7-18); BUN/Creat Ratio 17.4 RATIO (10-20); Calcium,Total 9.3 mg/dL (8.5-10.1); Chloride 106 mmol/L (98-107); Cholesterol 226 mg/dL (200); Creatinine, Serum 1.15 mg/dL (0.70-1.30); EST Glomerular Filtration Rate 70 mL/min (>60); Est Glom Filt Rate - Afr Amer 84 mL/min (>60); Glucose 96 mg/dL (74-106); High Density Lipoprotein 52 mg/dL; Potassium 4.3 mmol/L (3.5-5.1); Sodium Level 138 mmol/L (136-145); Triglycerides 180 mg/dL; Very Low Density Lipoprotein 36 mg/dL (5-40)
== END ==
PROVIDERS: PCP Family Medicine; Referring Provider Family Medicine; Visit Provider Family Medicine
DX: I10 Essential (primary) hypertension (principal)
CPT/HCPCS: 36415; 80048; 80061

== ENCOUNTER 2021-03-20 12:06 | Outpatient (CLI) | payer BC, SELFPAY ==
--- NOTE | 2021-03-20 12:10 | RAD_ITS ---
STUDY: X-RAY - PELVIS AND BILATERAL HIP REASON FOR EXAM: Male, 56 years old. HIP PAIN TECHNIQUE: XR Hips Bilateral with Pelvis when performed; 2 Views COMPARISON: None. FINDINGS: There is a non-specific bowel gas pattern. Normal visualized soft tissue structures. Spinal fixation hardware noted. Normal bilateral iliac wings, sacroiliac joints and visualized sacrum. Normal bilateral superior and inferior pubic rami. Normal pubic symphysis. Normal bilateral ischial tuberosities. Normal visualized femoral head. Normal acetabulum. Normal hip joint. RAD/Hips B/L min 2 views w/ Pelvis IMPRESSION: No acute findings. Electronically Signed: Sang Rodriguez MD at 18:32 EST ,
== END 2021-03-20 23:59 | disposition short-term general hospital (02) ==
LOC: MTRAD 12:09
PROVIDERS: PCP Family Medicine; Referring Provider Family Medicine; Visit Provider Family Medicine
DX: M25.551 Pain in right hip (principal)
CPT/HCPCS: 73521

== ENCOUNTER 2022-04-16 07:41 | Day surgery (SDC) | payer BC, SELFPAY ==
[2022-04-16] VITALS (7 sets, daily range): BP systolic 93–119; BP diastolic 68–91; PULSE 68–88; RESP 16; TEMP 36.1–36.2; O2SAT 95–99; BMI 27.8
[2022-04-16] MEDS: Lactated Ringers 1,000 ML 15 ML IV (08:03)
--- NOTE | 2022-04-16 09:01 | HP.PCM_ITS ---
HPI - General HPI Narrative GRETCHEN BUCKLEY, is a 57 M who presents for colonoscopy. I attempted a colonoscopy in 2019 and was unable to remove the polyp due to diverticular stricture. He was sent to GI and GI was able to remove the polyp piecemeal. They recommended repeating in 1 year but he did not follow-up. He denies any abdominal pain but he does report constipation and difficulty passing stool. FORMERLY [facility], [facility] Medical History (Updated 04/16/22 @ 09:[address] Brandon Bliss MD) Alcohol use Back pain Epigastric pain Former smoker Gastric reflux GERD (gastroesophageal reflux disease) History of colon polyps HTN (hypertension) Marijuana use Nausea & vomiting Wears glasses Home Medications metoprolol tartrate 50 mg tablet 50 mg PO DAILY 03/09/22 [History Last Taken 04/16/22] lisinopril 5 mg tablet 40 mg PO DAILY 04/13/22 [History Last Taken 04/16/22] Allergy/AdvReac Type Severity Reaction Status Date / Time No Known Allergies Allergy Verified 04/16/22 07:58 Surgical History (Updated 04/13/22 @ 10:11 by Elli Felipe) History of colonoscopy History of fusion of lumbar spine Hx of esophagogastroduodenoscopy Social History Smoking Status: Former smoker alcohol intake: current alcohol intake frequency: 0-2 drinks per day substance use type: does not use Past Medical/Surgical History Planned Operation Planned Operative Procedure/s: CSCOPE OA S.O.S: No Previous Hospitalizations/Surgeries HX Hospitalizations: No HX of Surgeries: SPINAL SURGERY Any Problems With Anesthesia: Yes (NARROW AIRWAY) You/Your Family Experience Fever (Hyperthermia) With Anes: No Cholinesterase deficiency: No Cardiovascular Hx Chest Pain within Last 2 months: No Hx of Irregular Heartbeat and/or Afib: No Hx Heart Attack: No Hx Congestive Heart Failure: No Hx Rheumatic Fever: No Hx Hypertension: Yes (CONTROLLED WITH MEDS) Hx Internal Defibrillator: No Hx Pacemaker: No Hx Cardiac Catheterization: No Hx Cardiac Surgery/Stents/Etc.: No Hx Stress Test: No Hx Pain in Legs when Walking/Leg Cramps: No Respiratory Chronic Cough: No HX of Shortness of Breath: No Hoarseness: No Hx Chronic Obstructive Pulmonary Disease (COPD): No Hx Asthma: No Hx Emphysema: No Hx Sleep Apnea: No Hx Respiratory Tract Infection/Cold (presently): No Do You Snore Loudly (louder than talking or can be heard): Yes Do You Often Feel Tired/ Fatigued/ Sleepy Dring Daytime?: No Has Anyone Observed You Stop Breathing During Sleep?: No Result (for STOP score): Positive Hx Smoking: Yes Smoking Status: Former smoker Gastrointestinal Hx Gastroesophageal Reflux: Yes Controlled With Meds: Yes Hx Gastrointestinal Disorders: No Hx Gastrointestinal Bleed: No Hx Ulcer: No Hx Hiatal Hernia: No Difficulty Chewing/Swallowing: No Special diet followed at home: No Hx Unplanned Weight Loss of 20#: No HX Unplanned Weight Gain of 20#: No Neurological Hx Seizures: No HX Syncope/Blackout Spells/Unconsciousness: No Hx Transient Ischemic Attacks (TIA): No Hx Multiple Sclerosis: No Hx Parkinson's Disease: No Hx Head/Neck Injury: No Hx Headaches: No Hx Back Injury/Pain: Yes (SURGERY) Recent Onset of Speech Difficulty: No Restless Legs: No Does patient have nerve stimulator: No Blood Disorder Hx Leukemia: No Bleeding Tendencies: No Hx Deep Vein Thrombosis: No Hx High Cholesterol: No Blood Transmitted Disease: No Hx Hepatitis: No Hx Cirrhosis: No Hx Anemia: No Hx Blood Disorders: No Reproduction : No Genitourinary Hx Renal Disease: No Musculoskeletal Hx Arthritis: No Hx Rheumatoid Arthritis: No Hx Gout: No Recent Onset of an Orthopedic Problem: No Endocrine Hx Diabetes: No Thyroid Disease: No Hx Steroid Therapy: No Psycho/Social Hx Substance Use: No Hx Alcohol Use: Yes (bourban x2 daily) Hx Anxiety: No Hx Depression: No Mental Illness: No Hx Dementia: No Miscellaneous Hx Cancer: No Recent Exposure to Contagious Disease: No Hx of C-Diff: No Any Loose Teeth: No Allergies No Known Allergies Allergy (Verified 04/16/22 07:58) Discharge Is Pt Admitted From a Assisted, or a Detention: No After D/C, Where Do you Plan to Go: Return Home Vital Signs Vital Signs Vital Signs: 04/16/22 07:59 04/16/22 07:59 Temperature 97.0 F L Temperature Source Temporal Pulse Rate 68 Respiratory Rate 16 Respiratory Pattern Normal Blood Pressure 114/82 H Blood Pressure Mean 92 Blood Pressure Source Monitor Blood Pressure Position Semi-Fowlers Blood Pressure Location Left Arm Pulse Ox 99 Weight Weight: 194 lb 0.108 oz Body Mass Index (BMI) 27.8 Physical Exam Const alert and oriented x3 HEENT normocephalic Eyes PERRL Resp normal respiratory effort and normal air movement Cardio regular rate and regular rhythm GI soft to palpation, non-tender and non-distended Extremity normal to inspection Assessment & Plan Assessment/Plan (1) History of colon polyps: PLAN: Patient has a history of colon polyp removed 3 years ago. He also has an apparent diverticular stricture and he is having difficulty passing stool. I discussed performing his colonoscopy with him but that if I was unable to perform it or if there is significant stricturing he may need sigmoid colectomy. I explained endoscopy in detail to the patient. I explained the risks including but not limited to stroke or heart attack with anesthesia, perforation of the GI tract, bleeding, infection. I explained that any of these could necessitate further emergency surgery. The patient understands and all questions were answered sufficiently. The patient wishes to proceed with procedure. Brandon Bliss MD Pager: [facility] [address] [place] [address] [address] [place] [address] Office: Surgery Risks - Colonoscopy Risks Include but are not Limited To: Risks include but are not limited to: Bleeding, perforation requiring further surgery, inability to complete colonoscopy requiring barium enema.
--- NOTE | 2022-04-16 09:27 | PCM.PN.BLA ---
Progress Note I was unable to complete the colonoscopy. I was unable to make it through his sigmoid stricture. The colon was strictured at 20 cm. I recommend the patient follow-up in my office to discuss sigmoid colectomy for diverticular stricture.
--- NOTE | 2022-04-16 09:30 | OP.CCLET_ITS ---
04/16/2022 Len Shelton MD [address] [place] [address] Re : Colonoscopy procedure for Israel Aponte Dear Dr. Shelton This procedure was performed on Saturday, April 16, 2022. My impressions and recommendations are as follows: Impressions : - Stricture in the sigmoid colon. - No specimens collected. Recommendations : - Discharge patient to home. - Resume previous diet. - Continue present medications. - Repeat colonoscopy in 6 months because the examination was incomplete. - Return to my office in 1 week. My findings are described in the full procedure note, which is enclosed. If I can be of further assistance, please feel free to contact me at Doctor phone number(s): , Work: . Sincerely, Brandon Bliss MD 04/16/2022 9:29:38 AM This report has been signed electronically.
--- NOTE | 2022-04-16 09:30 | OP.COLON_ITS ---
Patient Name: Israel Aponte Procedure Date: 04/16/2022 9:01 AM Date of : 1965 Age: 57 Procedure: Colonoscopy Indications: High risk colon cancer surveillance: Personal history of colonic polyps Providers: Brandon Bliss MD Medicines: Monitored Anesthesia Care Patient Profile: This is a 57 year old male. Refer to note in patient chart for documentation of history and physical. Last Colonoscopy: 3 years ago. Complications: No immediate complications. Estimated blood loss: Minimal. Procedure: Pre-Anesthesia Assessment: - Prior to the procedure, a History and Physical was performed, and patient medications and allergies were reviewed. The patient's tolerance of previous anesthesia was also reviewed. The risks and benefits of the procedure and the sedation options and risks were discussed with the patient. All questions were answered, and informed consent was obtained. Prior Anticoagulants: The patient has taken no previous anticoagulant or antiplatelet agents. After reviewing the risks and benefits, the patient was deemed in satisfactory condition to undergo the procedure. After I obtained informed consent, the scope was passed under direct vision. Throughout the procedure, the patient's blood pressure, pulse, and oxygen saturations were monitored continuously. The Colonoscope was introduced through the anus with the intention of advancing to the cecum. The scope was advanced to the sigmoid colon before the procedure was aborted. Medications were not given. The colonoscopy was performed without difficulty. The colonoscopy was extremely difficult due to bowel stenosis. The patient tolerated the procedure well. The quality of the bowel preparation was good. Scope In: 9:15:23 AM Scope Out: 9:24:41 AM Total Procedure Duration Time 0 hours 9 minutes 18 seconds Findings: A benign-appearing, intrinsic severe stenosis measuring of unknown length was found in the sigmoid colon and was non-traversed. Impression: - Stricture in the sigmoid colon. - No specimens collected. Recommendation: - Discharge patient to home. - Resume previous diet. - Continue present medications. - Repeat colonoscopy in 6 months because the examination was incomplete. - Return to my office in 1 week. Procedure Code(s): --- Professional --- 81995, 53, Colonoscopy, flexible; diagnostic, including collection of specimen(s) by brushing or washing, when performed (separate procedure) Diagnosis Code(s): --- Professional --- Z86.010, Personal history of colonic polyps K56.699, Other intestinal obstruction unspecified as to partial versus complete obstruction CPT copyright 2017 [employer]. All rights reserved. The codes documented in this report are preliminary and upon office coordinator receptionist review may be revised to meet current compliance requirements. Brandon Bliss MD 04/16/2022 9:29:38 AM This report has been signed electronically. Number of Addenda: 0 Note Initiated On: 04/16/2022 9:01 AM
--- NOTE | 2022-04-16 09:47 | EKG12_ITS ---
Test Reason : A FLUTTER Blood Pressure : / mmHG Vent. Rate : 070 BPM Atrial Rate : 264 BPM P-R Int : 000 ms QRS Dur : 094 ms QT Int : 436 ms P-R-T Axes : 075 -22 045 degrees QTc Int : 470 ms Atrial flutter with variable A-V block with premature ventricular or aberrantly conducted complexes Low voltage QRS Nonspecific ST abnormality Abnormal ECG When compared with ECG of 13-MAR-2019 17:18, Significant changes have occurred Confirmed by BRITTNI OSPINA, BETH ([id number]), society editor JIA FAY ([id number]) on 04/20/2022 10:12:06 AM Referred By: Len Shelton Confirmed By:BETH ELKINS MD
[2022-04-16 10:23] LABS: Troponin-I HS 5 pg/mL (3.0-78.0)
== END 2022-04-16 11:03 | disposition home or self-care (01) ==
LOC: EN 07:46 → AC 07:47
PROVIDERS: Anesthesiology; PCP Family Medicine; Referring Provider Family Medicine; Visit Provider Surgery
PROC: 0DJD8ZZ Inspection of Lower Intestinal Tract, Via Natural or Artificial Opening Endoscopic (ICD-10-PCS; CPT 45378; principal; 2022-04-16 08:55)
DX: Z12.11 Encounter for screening for malignant neoplasm of colon (principal); I10 Essential (primary) hypertension; Z79.899 Other long term (current) drug therapy; Z86.010 Personal history of colon polyps; Z87.891 Personal history of nicotine dependence
CPT/HCPCS: 45378; 84484; 93005; J7120; J2405

== ENCOUNTER → 2022-05-24 | Outpatient (CLI) | payer BC, SELFPAY ==
[2022-05-24 12:08] LABS: Anion Gap 2 (5-15); BUN 18 mg/dL (7-18); BUN/Creat Ratio 14.5 RATIO (10-20); Calcium,Total 9.6 mg/dL (8.5-10.1); Chloride 103 mmol/L (98-107); Creatinine, Serum 1.24 mg/dL (0.70-1.30); EST Glomerular Filtration Rate 63 mL/min (>60); Est Glom Filt Rate - Afr Amer 77 mL/min (>60); Glucose 105 mg/dL (74-106); Potassium 4.2 mmol/L (3.5-5.1); Sodium Level 135 mmol/L (136-145); Thyroid Stim Hormone (TSH) 1.04 uIU/mL (0.358-3.74)
== END | disposition home or self-care (01) ==
LOC: LAB 10:52
PROVIDERS: PCP Family Medicine; Referring Provider Internal Medicine Cardiovascular Disease; Visit Provider Internal Medicine Cardiovascular Disease
DX: I10 Essential (primary) hypertension (principal); I48.91 Unspecified atrial fibrillation
CPT/HCPCS: 36415; 80048; 84443

== ENCOUNTER → 2022-05-26 | Outpatient (CLI) | payer BC, SELFPAY ==
--- NOTE | 2022-05-26 06:16 | ECHOD_ITS ---
Reason For Study: Aflutter, Preop Procedure This was a 2D Doppler, Color Flow transthoracic echocardiogram. Exam performed in department. Left Ventricle Normal size and thickness. The left ventricular ejection fraction is 55 %. Unable to assess diastolic function based on available data. Right Ventricle Normal right ventricle. Atria The left and right atria are normal. Mitral Valve Trivial mitral valve insufficiency. Tricuspid Valve Trivial tricuspid valve insufficiency. Normal pulmonary artery pressure. Aortic Valve Normal aortic valve. Pulmonic Valve The pulmonic valve is not well visualized. Trivial pulmonic valve insufficiency. Great Vessels Mildly dilated aortic root. Pericardium/Pleural No pericardial effusion. MMode/2D Measurements & Calculations LVIDd: 5.3 cm IVSd: 1.0 cm Ao root diam: 3.8 cm LVIDs: 3.7 cm LVPWd: 0.86 cm RVDd: 3.2 cm FS: 30.3 % LAV(MOD-bp): 38.7 ml LVAd ap4: 24.4 cm2 LVAd ap2: 21.9 cm2 LAV(MOD-bp) Indexed: 18.9 ml/m2 LVLd ap4: 7.7 cm LVLd ap2: 7.9 cm LAV(MOD-sp2): 40.2 ml EDV(MOD-sp4): 63.6 ml EDV(MOD-sp2): 52.1 ml LAV(MOD-sp4): 33.7 ml EDV(sp4-el): 65.8 ml EDV(sp2-el): 51.8 ml LVAs ap4: 15.0 cm2 LVAs ap2: 13.4 cm2 LVLs ap4: 6.6 cm LVLs ap2: 7.0 cm ESV(MOD-sp4): 29.8 ml ESV(MOD-sp2): 23.2 ml ESV(sp4-el): 29.3 ml ESV(sp2-el): 21.7 ml EF(MOD-sp4): 53.2 % EF(MOD-sp2): 55.4 % EF(sp4-el): 55.5 % SV(MOD-sp4): 33.8 ml SV(MOD-sp2): 28.9 ml SV(sp4-el): 36.5 ml LA dimension(2D): 3.9 cm LA A4 area: 14.7 cm2 RA A4 area: 13.1 cm2 Doppler Measurements & Calculations MV E max nilson: 61.9 cm/sec Ao V2 max: 101.9 cm/sec LV V1 max: 76.8 cm/sec Ao max P.2 mmHg LV V1 max P.4 mmHg Ao V2 mean: 72.1 cm/sec Ao mean P.4 mmHg Ao V2 VTI: 18.1 cm PA V2 max: 75.1 cm/sec TR max nilson: 218.8 cm/sec TR max P.2 mmHg ECHO/Echo Complete Interpretation Summary The left ventricular ejection fraction is 55 %. Mildly dilated aortic root. Ordering Physician: Geetha Campos Referring Physician: Len Shelton Performed By: Georgina Francisco, NATALY, RVT
--- NOTE | 2022-05-26 08:54 | STRESSREP_ITS ---
Stress Test Report Date: 05/26/2022 Procedure: Exercise tolerance test/imaging study Indications: Arrhythmia Consent: Per the patient Procedure: The patient exercised on a Benjamin protocol for 7 minutes and 1 second achieving a peak heart rate of 139 bpm (86% predicted maximal heart rate) with a peak blood pressure 152/80 mmHg and a peak MET capacity of 10.1 METs. The baseline ECG demonstrated atrial flutter. The peak exercise ECG demonstrated no ischemic changes. The functional capacity was considered adequate. There was no complaint of chest discomfort during exercise or recovery. The examination was discontinued secondary to target heart rate being achieved. The patient was injected with 11.8 mCi of technetium 99m Cardiolite and subs equently rest SPECT Cardiolite nuclear imaging was obtained in the horizontal long, vertical long, and short axis views. Post-exercise, the patient was injected with 34.4 mCi of technetium 99m Cardiolite and subsequently stress SPECT Cardiolite nuclear imaging was obtained in the horizontal long, vertical long, and short axis views. A gated Cardiolite study at peak stress was obtained. Rest and stress SPECT Cardiolite nuclear imaging status post realignment, normalization, and attenuation correction, demonstrates the appearance of relative uniform tracer uptake and myocardial perfusion appearing within normal limits. There is end systolic thickening and brightening. The gated Cardiolite study demonstrates myocardial thickening and inward wall motion. The reported LVEF is 55%. Impression: 1. Technically adequate (percent predicted maximal heart rate greater than 85%) exercise tolerance test 2. Peak exercise ECG 3. No ventricular arrhythmias noted. 4. Rest and stress SPECT Cardiolite nuclear imaging demonstrate no fixed or reversible perfusion defects. 5. The gated Cardiolite study reports an LVEF of 55%. This note was generated with [employer] software. It may contain incorrect words, spelling, and punctuation that were not noted in checking the note before signing.
== END | disposition home or self-care (01) ==
PROVIDERS: PCP Family Medicine; Referring Provider Internal Medicine Cardiovascular Disease; Visit Provider Internal Medicine Cardiovascular Disease
DX: I48.92 Unspecified atrial flutter (principal); I10 Essential (primary) hypertension; Z01.810 Encounter for preprocedural cardiovascular examination
CPT/HCPCS: 78452; 93017; 93306; A9500; A4216

== ENCOUNTER 2022-07-21 05:27 | Inpatient (IN) | payer BC, SELFPAY ==
[2022-07-13 12:10] LABS: Hematocrit 41.8 % (40-54); Hemoglobin 13.7 g/dL (13.0-16.5); Mean Corp Hgb Conc 32.8 g/dL (32-36); Mean Corpuscular Hgb 31.4 pg (27.0-32.0); Mean Corpuscular Volume 95.7 fL (80-94); Mean Platelet Vol. 9.6 fl (6.2-12.0); Platelet Count 291 K/mm3 (150-450); RBC Distribution Width CV 13.7 % (11.6-14.6); RBC Distribution Width SD 49.1 fl (35.1-43.9); Red Blood Count 4.37 M/mm3 (4.6-6.2); White Blood Count 13.6 K/mm3 (4.4-11.0)
[2022-07-13 13:00] LABS: Magnesium 2.5 mg/dL (1.6-2.6)
[2022-07-21] VITALS (14 sets, daily range): BP systolic 83–164; BP diastolic 57–95; PULSE 43–85; RESP 15–18; TEMP 36.2–37; O2SAT 94–100; BMI 26.6
[2022-07-21] MEDS: Lactated Ringers 1,000 ML 40 ML IV ×2 (06:12→13:00)
[2022-07-21] MEDS: Magnesium 1 GM over 15 mins IV (06:12)
[2022-07-21] MEDS: Acetaminophen 500 MG Tablet 1000 MG PO ×3 (06:30→23:32)
[2022-07-21] MEDS: Gabapentin 600 MG Tablet PO (06:30)
[2022-07-21 07:02] LABS: Bedside Glucose 120 mg/dL (74-106)
--- NOTE | 2022-07-21 07:02 | HP.PCM_ITS ---
History and Physical Date of Admission: 07/21/22 Intake Intake Visit Reasons:?COLONOSCOPY RESULTS & DISCUSS PLAN Chief Complaint: discuss surgery Call Center Receptionist Required: No Is patient in pain?: No Allergies No Known Allergies Allergy (Verified 06/08/22 08:07) Medications lisinopril 40 mg tablet 40 mg PO DAILY 04/23/22 [History Confirmed 06/08/22] aspirin 81 mg tablet,delayed release 81 mg PO DAILY 05/04/22 [History Confirmed 06/08/22] hydrochlorothiazide 12.5 mg tablet 12.5 mg PO DAILY #90 tabs 05/04/22 [Rx Confirmed 06/08/22] metoprolol succinate 25 mg tablet,extended release 24 hr 25 mg PO DAILY #90 tabs 05/04/22 [Rx Confirmed 06/08/22] cephalexin 500 mg tablet 500 mg PO .COMPLEX #6 tabs 06/08/22 [Rx Confirmed 06/08/22] metronidazole 500 mg tablet 500 mg PO .COMPLEX #6 tabs 06/08/22 [Rx Confirmed 06/08/22] PFSH Medical History? Alcohol use Back pain Encounter for screening for malignant neoplasm of colon Epigastric pain Former smoker Gastric reflux GERD (gastroesophageal reflux disease) History of colon polyps History of colon polyps HTN (hypertension) Marijuana use Nausea & vomiting New onset atrial flutter Right hip pain Wears glasses Surgical History? History of colonoscopy History of fusion of lumbar spine Hx of esophagogastroduodenoscopy Family History? Father A-fib Social History? Smoking Status:? Former smoker alcohol intake:? current alcohol intake frequency: a few times a week substance use type:? marijuana caffeine:? Yes Type: coffee Number of servings: 2 HPI HPI HPI: Patient is a 57-year-old male here for follow-up after colonoscopy.? Patient had colonoscopy in the sigmoid colon was not able to be transversed due to diverticular stricture. ROS General General: No weight change or fatigue HEENT HEENT: No difficulty swallowing Endo Endocrine: No thyroid disease Musc Musculoskeletal: No back problems or arthritis Cardio Cardiovascular: No pacemaker, heart disease, atrial fibrillation, high blood pressure, heart attack, heart stent, palpitations or chest pain Psych Psychiatric: No depression or anxiety Resp Respiratory: No shortness of breath, No cough, No COPD, No asthma and No emphysema Gastro Gastrointestinal: Yes abdominal pain, No nausea or vomiting, No diarrhea, Yes constipation, No blood in stool, No acid reflux, No hemorrhoids, No ulcers, No gallbladder problem and No black,tarry stools Robby Hematologic: No blood thinners Exam Const General: cooperative Orientation: alert and oriented x3 HENMT Head: normal to inspection Neck Neck: normal visual inspection and full ROM Chest Chest palpation & inspection: normal inspection of the chest Resp Effort & Inspection: normal respiratory effort Auscultation: clear to auscultation bilaterally Cardio Rate: regular rate Rhythm: regular rhythm GI Inspection: non-distended Palpation: soft and nontender Skin General: no rashes or lesions noted Neuro General: patient alert and patient oriented x3 Extrem General: full ROM Psych Appearance: grossly normal Mental Status: mental status grossly normal Assessment and Plan Assessment and Plan (1) Diverticular stricture: ?Status:?Acute ?Plan: Patient has a likely diverticular stricture in the sigmoid colon.? Sigmoid wound is not able to be traversed during colonoscopy.? I recommend laparoscopic sigmoid colectomy.? I discussed this with the patient and his in detail.? I discussed the procedure as well as the risks of bleeding, infection, injury to surrounding organs, anastomotic leak.? Patient understands the risks and is willing to proceed with sigmoid colectomy.? I will try to coordinate with urology to have a stent placed at the time of surgery. Brandon Bliss MD Pager: [facility] [address] [place] [address], [address] [place] [address] Office: I have examined the patient and the H&P has been reviewed. There are no clinical changes since date of exam.
--- NOTE | 2022-07-21 07:30 | COL_PTH ---
PATIENT: GRETCHEN BUCKLEY Jr. LOC: MS3 U#:[id number] AGE/SX: 57/M ROOM: SD324 RE07/21/[address]: Dr. Brandon Bliss MD : 1965 BED: 1 DIS: 07/24/2022 SPEC #: [id number] RECD: 07/21/22 13:20 STATUS: ANASTASIA GAMBLE #: [id number] NELLIE: 07/21/22 07:[address]: Brandon Bliss DEPT: SURGICAL PATHOLOGY RECD BY: Sabina Terrazas ENTERED: 07/22/22 09:10 SP TYPE: COLON OTHR DR: Dr. Len Shelton MD Tissues: A - Colon, NOS B - Colon Donuts Procedures: Surgery Specimen Level III Surgery Specimen Level V HEADER OPERATION: ERAS, laparoscopic sigmoid colectomy, converted to open PRE-OP DIAGNOSIS: Diverticular stricture TISSUE SUBMITTED: A ? Sigmoid colon, B ? Proximal and distal donuts MICROSCOPIC DIAGNOSIS A. Sigmoid colon, segmental colectomy: Diverticular disease of colon. Acute serositis with microabscess formation. Four lymph nodes with no pathologic change. Margins of excision with no pathologic change. Submucosal hematoma. B. Proximal and distal mucosal donuts, excision: No significant pathologic change. AM:tanisha 07/23/2022 MICROSCOPIC DESCRIPTION Slides are reviewed. GROSS DESCRIPTION A - Received in fixative is one container labeled with the patient's name and designated sigmoid colon. The specimen consists of a segment of colon measuring 24.0 cm in length with attached pericolonic adipose tissue. One resection margin is open and the other resection margin is stapled. The serosal surface shows focal ragged area. Lumen contains fecal material. Mucosa shows a congested area measuring 0.5 cm in greatest dimension, 10 cm away from the open resection margin. Sections of this area reveal blood clot underneath the mucosa. Sections reveal multiple diverticula. More dictation will follow after fixation. / SJ:tanisha 07/21/2022 Sections do not reveal any obviously ruptured diverticula. Many of the diverticula are filled with fecal material. Sections of pericolonic adipose tissue does not reveal any obviously enlarged lymph node. Process Planner sections are submitted in seven cassettes as follows: 1 - open resection margin, 2??stapled resection margin, 3 - mucosal congested area with submucosal blood clot, 4-6 - diverticula (cassette 4 contains the ragged serosal surface), 7 - pericolonic adipose tissue. / SJ:tanisha 07/22/2022 B - Received in fixative is one container labeled with the patient's name and designated proximal and distal donuts. The specimen consists of two donut-shaped pieces of tissue measuring 2.0 x 2.0 x 1.0 cm and 3.0 x 2.0 x 1.0 cm. One of the donuts show multiple sutures. No lesion is identified. Process Planner sections are submitted in two cassettes as follows: 1 - donut without suture, 2 - donut with suture. / CLIFF:tanisha 07/22/2022 TC:2 CPT: 35800, 78755 x2
--- NOTE | 2022-07-21 08:09 | OP.PCM_ITS ---
Report of Operation Date of Procedure: 07/21/22 Pre-Operative Diagnosis: Diverticulitis diverticular stricture Post-Operative Diagnosis: The same Surgery/Procedure Performed:: Cystoscopy and placement of a left ureteral catheter Description of Surgical Findings:: Patient was underwent general anesthesia he was placed in dorsal lithotomy position. The penis testicles were prepped and draped in usual sterile fashion within the bladder with a 21 [place] rigid cystourethroscope the entire length the urethra was normal the prostate was normal inside the bladder identified the left ureteral orifice I did not see any tumors or stones within the bladder prostate was slightly enlarged I then cannulated the left ureteral orifice with a Glidewire and advanced the Pollack catheter over the Glidewire up the ureter. Once the catheter was in place then I removed the scope we placed the catheter in the bladder and the case was then turned over to the general surgeon to proceed with the surgery. Surgeon: Devonte Lord Type of Anesthesia: General Drains: stent Admit VTE Documentation VTE Present on Admission: No VTE Mechan Device Prophylaxis: SCD's VTE Pharm Prophylaxis ordered?: No
[2022-07-21] MEDS: BUPIVACAINE LIPOSOME/PF 20 ML VIAL OPERA.SITE (09:41)
--- NOTE | 2022-07-21 10:53 | PCM.OPRPT ---
Report of Operation Date of Procedure: 07/21/22 Pre-Operative Diagnosis: Diverticular stricture Post-Operative Diagnosis: Diverticulitis with partial obstruction Surgery/Procedure Performed:: Lap converted to open sigmoid colectomy Specimen's removed: Sigmoid colon Description of Procedure: Patient was brought back to the operating room and general anesthesia was induced. Crawford catheter was placed and cystoscopy was performed by Dr. Lord and he placed a left ureteral stent. Next the rectum was irrigated with a Betadine saline solution. The perineum and abdomen were then prepped and draped in usual sterile fashion. Midline incision was made superior to the umbilicus and Visiport technique was used to place a 5 mm port and then the abdomen was insufflated to 15 mmHg. The abdomen was inspected and there were no injuries from entry. Tap block was performed laterally on both sides under direct visualization. Under direct visualization a right lower quadrant 10 mm port was placed. There was also a 5 mm port placed between these 2 ports. Patient was placed in steep Trendelenburg position. The sigmoid was densely adherent to the left lateral sidewall. The adhesions to the left lateral sidewall were began to take down. This was followed superiorly inferiorly. It appeared that the sigmoid colon dipped down to the left side of the pelvis and was densely adherent in the left pelvis. It then looped back up and form the rectum. There is a firm distended area proximal to the rectum. It appeared that this was the inflamed area causing obstruction. I was unable to remove this from the pelvis laparoscopically. I was also unable to identify or feel up the left ureter laparoscopically. At this point the laparoscopic instruments were removed and an incision was made from below the umbilicus down to the pubic symphysis. The fascia was opened and the wound protector was placed. The sigmoid colon was delivered as much as possible through the incision and the rectum was finger fractured until it was to be able to be removed from the bladder. It was densely adherent to the bladder and the left pelvis. The left ureter was identified by feel and it appeared to be deep to our dissection area. Next the mesentery to the sigmoid colon was taken down using Enseal proximally and distally until the disease portion of the sigmoid was free from its mesentery. Next the area of the rectum was freed up circumferentially. A jigar's LISA stapler was attempted but it did not fit over the rectum. Next the contour stapler was used to staple across the rectum. The diseased sigmoid was delivered through the incision and the pelvis was inspected. There was good hemostasis. A few small vessels were tied off using 3-0 silk suture. There was good hemostasis in the pelvis. The pelvis was irrigated and suctioned dry. There did not appear to be any communication to the bladder. The ureter was safe in the left pelvis. Next proximal to the diseased portion of sigmoid an area of descending colon was chosen. It was divided using electrocautery. There was good blood supply and good color to the descending colon. It was sized and a 33 circular stapler was selected. The anvil was placed into the distal descending colon and a pursestring suture of 0 Prolene suture was used to tie it around the anvil. Next the operating room assistant moved down to the rectum and placed serial dilators which were palpated in the pelvis. Next a 33 LISA stapler was placed into the rectum and into the staple line. The point was placed through the middle of the staple line and the anvil was placed onto it. The stapler was closed and fired. The stapler was removed and there were 2 good donuts. The pelvis was irrigated and the descending colon was pinched. Air was insufflated into the rectum until he was passing beyond the rigid sigmoidoscope and there was no air leak. The water was suctioned from the abdomen and the abdomen was inspected once more and appeared to be good hemostasis with no tension on the anastomosis. All of the packs were removed and the omentum was draped over the bowel. Lap count was correct and then all of the instruments and wound protector were removed. Gown and gloves were changed from the staff. Next the fascia of the midline incision was closed in a running fashion from the top and bottom meeting in the middle using 0 PDS suture. The subcutaneous tissue was irrigated and suctioned dry. The incisions were closed with interrupted 4-0 Monocryl sutures. Steri-Strips and bandages were applied. The ureteral stent was removed at the end the case with the Crawford was left in place. The patient was awoken and taken to PACU in stable condition. Patient tolerated the procedure well. Admit VTE Documentation VTE Mechan Device Prophylaxis: SCD's
[2022-07-21] MEDS: Ketorolac 15 MG/ML Vial IV ×2 (14:05→18:42)
[2022-07-21] MEDS: Ondansetron ODT 4 MG Tablet PO (16:00)
[2022-07-21] MEDS: 0.9% Saline Lock 10 ML Syringe IV (16:02)
[2022-07-21] MEDS: HYDROmorphone 0.5 MG/0.5 ML SYRINGE IV (16:02)
[2022-07-21] MEDS: 0.9% Normal Saline 1,000 ML 999 ML IV (23:28)
[2022-07-21] MEDS: Docusate Sodium 100 MG Capsule PO (23:32)
[2022-07-22] VITALS (8 sets, daily range): BP systolic 96–126; BP diastolic 64–94; PULSE 64–91; RESP 18; TEMP 36.5–37.1; O2SAT 95–98
[2022-07-22] MEDS: Ketorolac 15 MG/ML Vial IV ×4 (00:32→18:15)
[2022-07-22] MEDS: 0.9% Saline Lock 10 ML Syringe IV ×2 (00:33→06:48)
[2022-07-22 05:41] LABS: Hematocrit 35.2 % (40-54); Hemoglobin 11.8 g/dL (13.0-16.5); Mean Corp Hgb Conc 33.5 g/dL (32-36); Mean Corpuscular Hgb 31.9 pg (27.0-32.0); Mean Corpuscular Volume 95.1 fL (80-94); Mean Platelet Vol. 9.2 fl (6.2-12.0); Platelet Count 248 K/mm3 (150-450); RBC Distribution Width SD 49.3 fl (35.1-43.9)
[2022-07-22] MEDS: Acetaminophen 500 MG Tablet 1000 MG PO ×4 (05:47→23:34)
[2022-07-22 06:01] LABS: Anion Gap 5 (5-15); BUN 16 mg/dL (7-18); BUN/Creat Ratio 14.7 RATIO (10-20); Calcium,Total 8.2 mg/dL (8.5-10.1); Chloride 103 mmol/L (98-107); Creatinine, Serum 1.09 mg/dL (0.70-1.30); EST Glomerular Filtration Rate 74 mL/min (>60); Est Glom Filt Rate - Afr Amer 89 mL/min (>60); Estimated Creatinine Clearance 75.34 ml/min; Glucose 111 mg/dL (74-106); Potassium 3.7 mmol/L (3.5-5.1); Sodium Level 137 mmol/L (136-145)
[2022-07-22] MEDS: hydroCHLOROthiazide 12.5mg 12.5 MG PO (09:41)
[2022-07-22] MEDS: Aspirin E.C. 81 MG Tablet PO (09:41)
[2022-07-22] MEDS: Docusate Sodium 100 MG Capsule PO ×2 (09:41→22:52)
[2022-07-22] MEDS: Metoprolol(XL)Succ 25 MG Tablet PO (09:41)
[2022-07-22] MEDS: Lisinopril 40 MG Tablet PO (09:41)
[2022-07-22] MEDS: Ensure Plus High Protein 120 ML LIQUID PO (09:46)
--- NOTE | 2022-07-22 10:41 | PCM.PN.SRG ---
Subjective Subjective Patient reports he is about to start passing gas. He has no nausea. His pain is controlled. Objective Data Objective Data Vital Signs: Vital Signs Temp Pulse Resp BP Pulse Ox O2 Del Method O2 Flow Rate 98.7 F 91 18 111/81 H 98 Room Air 2 07/22/22 09:31 07/22/22 09:41 07/22/22 09:31 07/22/22 09:31 07/22/22 09:31 07/22/22 09:31 07/21/22 12:22 Oxygen Flow Rate (L/min) 2 Oxygen Delivery Method Room Air Weight: 185 lb 13.595 oz Body Mass Index (BMI) 26.6 Intake & Output: Intake and Output for Last 24 Hours 07/20/22 07/21/22 07/22/22 23:59 23:59 23:59 Intake Total 3900.67 / 3900.67 1400 / 1400 Output Total 520 / 520 350 / 350 Balance 3380.67 / 3380.67 1050 / 1050 Lab / Micro Data Result Diagrams: 07/22/22 05:31 07/22/22 05:31 Labs: Laboratory Results - last 24 hr 07/22/22 05:31: Sodium 137, Potassium 3.7, Chloride 103, Carbon Dioxide 29.0, Anion Gap 5, BUN 16, Creatinine 1.09, Estim Creat Clear Calc 75.34, Est GFR (MDRD) Af Amer 89, Est GFR (MDRD) Non-Af 74, BUN/Creatinine Ratio 14.7, Glucose 111 H, Calcium 8.2 L 07/22/22 05:31: WBC 12.0 H, RBC 3.70 L, Hgb 11.8 L, Hct 35.2 L, MCV 95.1 H, MCH 31.9, MCHC 33.5, RDW Std Deviation 49.3 H, RDW Coeff of Curtis 14.0, Plt Count 248, MPV 9.2 Physical Exam Const oriented x3 and no apparent distress Resp normal respiratory effort GI soft to palpation Assessment & Plan Assessment/Plan (1) Diverticular stricture: PLAN: The patient seems to be doing well. His urine seems clear although he did require bolus for low urine output. I will continue Crawford for today due to the fact that his colon was attached to his bladder and he had some blood in his urine and questionable urine output. Patient is tolerating clear liquids no nausea or vomiting. I will await bowel function before advancing his diet. Brandon Bliss MD Pager: [facility] [address] [place] [address] [address] [place] [address] Office:
--- NOTE | 2022-07-22 11:00 | CASEMGMT ---
CARLOS NÚÑEZ Assessment: Face to Face with pt for initial transition planning/care coordination assessment. CARLOS NÚÑEZ introduced self and role at [facility], pt voices understanding and consents to assessment. Pt is A/O x4 and answers all questions appropriately at this time. Pt sitting up in bed in no distress. Care providers, pharmacy, and demographics verified/updated. Admitting Dx: sigmoid colectomy PCP:Cat Specialists:VANI Bliss; Andres, cardio Preferred Pharmacy: [facility] Retail Insurance: [place] Prescription Benefit: yes LNOK: Francesca Aponte, Living Arrangements: Pt lives with in a single story home with 3-4 steps to enter with a rail. Pt reports he is I in ADL's and denies concerns at home. Transportation: Pt drives self and denies concerns with transportation. Pt is able to transport pt to medical appts until he can drive again. DME/HHC/SNF: Pt has a BP cuff at home, does not use AD. Pt is currently using a FWW for ambulation in room. Pt states he does not feel he will need to go home with FWW. Will follow. Pt denies hx of HHC or SNF stays. Pt states no concerns with going home at time of dc. Pt states no further concerns/needs. CM to follow. Advised pt to ask CM if any further question/concerns/needs arise, voices understanding. Pt Goal: Home Plan: Home, follow for DME
[2022-07-22] MEDS: HYDROmorphone 0.5 MG/0.5 ML SYRINGE IV (14:50)
[2022-07-22] MEDS: Ondansetron ODT 4 MG Tablet PO (18:24)
--- NOTE | 2022-07-22 20:23 | ED.RN ---
Pt walked a lap around the nurses station.
[2022-07-23] VITALS (8 sets, daily range): BP systolic 121–158; BP diastolic 75–103; PULSE 87–101; RESP 16–18; TEMP 36.7–36.9; O2SAT 95–96
[2022-07-23] MEDS: Acetaminophen 500 MG Tablet 1000 MG PO ×3 (05:48→17:42)
--- NOTE | 2022-07-23 07:55 | PCM.PN.SRG ---
Subjective Subjective Patient has not had any flatus yet. No nausea with clears. Objective Data Objective Data Vital Signs: Vital Signs Temp Pulse Resp BP Pulse Ox O2 Del Method O2 Flow Rate 98.1 F 91 18 137/94 H 95 Room Air 2 07/23/22 05:46 07/23/22 05:46 07/23/22 05:46 07/23/22 05:46 07/23/22 05:46 07/23/22 05:46 07/21/22 12:22 Oxygen Flow Rate (L/min) 2 Oxygen Delivery Method Room Air Weight: 185 lb 13.595 oz Body Mass Index (BMI) 26.6 Intake & Output: Intake and Output for Last 24 Hours 07/21/22 07/22/22 07/23/22 23:59 23:59 23:59 Intake Total 3900.67 / 3900.67 2019 200 / 200 Output Total 520 / 520 925 / 925 600 / 600 Balance 3380.67 / 3380.67 1095 / 1095 -400 / -400 Lab / Micro Data Result Diagrams: 07/22/22 05:31 07/22/22 05:31 Physical Exam Const oriented x3 Resp normal respiratory effort GI soft to palpation and non-tender Assessment & Plan Assessment/Plan (1) Diverticular stricture: PLAN: Patient seems to be doing well. He feels like there is rumbling but he is not passing flatus yet. Pain is well controlled. No nausea on clears. I will advance him to full liquid diet. I will advance him to a regular diet once he starts passing flatus. Likely discharge tomorrow. DEYSI Crawford today as his urine output has picked up. Brandon Bliss MD Pager: [facility] [address] [place] [address], [address] [place] [address] Office:
--- NOTE | 2022-07-23 07:57 | DS.PCM_ITS ---
Providers Date of Admission: 07/21/22 Primary Care Physician: Dr. Len Shelotn MD Reason For Visit: LAP SIGMOID COLECTOMY Diagnosis Discharge Diagnosis (1) Diverticular stricture: Status: Acute Code(s): K56.699 - Other intestinal obstruction unspecified as to partial versus complete obstruction Plan: Patient seems to be doing well. He feels like there is rumbling but he is not passing flatus yet. Pain is well controlled. No nausea on clears. I will advance him to full liquid diet. I will advance him to a regular diet once he starts passing flatus. Likely discharge tomorrow. DEYSI Crawford today as his urine output has picked up. Brandon Bliss MD Pager: [facility] [address] [place] [address], [address] [place] [phone] Office: Medications at Discharge Home Medications lisinopril 40 mg tablet 40 mg PO DAILY BP 04/23/22 aspirin 81 mg tablet,delayed release 81 mg PO DAILY BLOOD THINNER 05/04/22 hydrochlorothiazide 12.5 mg tablet 12.5 mg PO DAILY BP 07/12/22 metoprolol succinate 25 mg tablet,extended release 24 hr 25 mg PO DAILY BP 07/12/22 acetaminophen 500 mg tablet 650 mg PO Q6 PRN Pain #0 tabs 07/23/22 oxycodone 5 mg tablet 5 - 10 mg PO Q4H PRN PRN Pain Score 4-10/10 5 days #15 tabs 07/23/22 Hospital Course Operations colectomy Summary of Care Provided Hospital Course: Patient had elective sigmoid colectomy due to diverticular stricture. Patient was slowly advancing his diet after surgery. Once tolerating diet he was discharged home. Pain was well controlled throughout his course. Weight / BMI Weight Weight: 185 lb 13.595 oz Body Mass Index (BMI) 26.6 ABG / Lab / Microbiology Data Result Diagrams: 07/22/22 05:31 07/22/22 05:31 D/C Instructions Discharge Diet: Light diet - advance as tolerated Discharge Activity: May Drive (after 2-3 days and while not taking narcotics) and May Shower Lifting Restrictions: 15 lbs for 4 weeks Call your doctor if your incision/area has: Continuous Slow Oozing, Sudden Increased Bleeding, Increased Pain/ Swelling, Increased Redness, Foul Smelling Discharge and Swelling at the incision site Call your doctor if you observe: Fever of 101 or Higher and Inability to have a bowel movement Remove Dressing in: 1 day (Remove steri strips in 7-10 days) Cleanse incision/area with: Soap & Water Please Follow Up With: Brandon Bliss MD When: Please call to schedule 1 week follow up appointment. [phone] Meaningful Use Info Meaningful Use Diagnoses (Choose all that apply): None applicable Discharge Plan Admission Admit Date/Time: 07/21/22 05:27 Attending Provider: Brandon Bliss Primary Care Provider: Len Shelton Discharge Orders/Prescriptions Prescriptions: New acetaminophen 500 mg Tablet 650 mg PO Q6 PRN (Reason: Pain) Qty: 0 0RF oxycodone 5 mg Tablet 5 - 10 mg PO Q4H PRN PRN (Reason: Pain Score 4-10/10) 5 Days Qty: 15 0RF Continued lisinopril 40 mg tablet 40 mg PO DAILY aspirin 81 mg tablet,delayed release (DR/EC) 81 mg PO DAILY metoprolol succinate 25 mg tablet extended release 24 hr 25 mg PO DAILY hydrochlorothiazide 12.5 mg tablet 12.5 mg PO DAILY Discontinued metronidazole 500 mg tablet 500 mg PO .COMPLEX Rx Instructions: Take 2 (two) tablets at 1300, 1500, 2300 the day prior to the procedure cephalexin 500 mg tablet 500 mg PO .COMPLEX Rx Instructions: Take Two (2) tablets at 1300, 1500, and 2300 pm the day prior to procedure Referrals / Follow Up: Len Shelton MD [Primary Care Provider] - Disposition Disposition (needs filled in before D/C Order can be placed): Home, Self Care
[2022-07-23] MEDS: Enoxaparin 40 MG/0.4 ML Syringe SC (09:23)
[2022-07-23] MEDS: Lisinopril 40 MG Tablet PO (09:24)
[2022-07-23] MEDS: hydroCHLOROthiazide 12.5mg 12.5 MG PO (09:24)
[2022-07-23] MEDS: Ondansetron ODT 4 MG Tablet PO (09:24)
[2022-07-23] MEDS: oxyCODONE 5 MG Tablet PO ×2 (09:24→20:13)
[2022-07-23] MEDS: Metoprolol(XL)Succ 25 MG Tablet PO (09:24)
[2022-07-23] MEDS: Aspirin E.C. 81 MG Tablet PO (09:24)
[2022-07-23] MEDS: Docusate Sodium 100 MG Capsule PO ×2 (09:24→20:14)
--- NOTE | 2022-07-23 12:23 | CASEMGMT ---
Discussed FWW with surgeon. RN CM into pt room, discussed trying to ambulate without walker to see how he does. Nurse aware of this as well.
[2022-07-24] VITALS (8 sets, daily range): BP systolic 145–153; BP diastolic 100–103; PULSE 87–96; RESP 16–18; TEMP 36.6–36.9; O2SAT 96–97
[2022-07-24] MEDS: Acetaminophen 500 MG Tablet 1000 MG PO ×3 (00:16→11:50)
[2022-07-24] MEDS: hydroCHLOROthiazide 12.5mg 12.5 MG PO (06:01)
[2022-07-24] MEDS: Aspirin E.C. 81 MG Tablet PO (08:04)
[2022-07-24] MEDS: Lisinopril 40 MG Tablet PO (08:04)
[2022-07-24] MEDS: Enoxaparin 40 MG/0.4 ML Syringe SC (08:05)
[2022-07-24] MEDS: Metoprolol(XL)Succ 25 MG Tablet PO (08:05)
--- NOTE | 2022-07-24 08:51 | PCM.PN.SRG ---
Subjective Subjective Patient 57-year-old male who is seen postoperative day 3 ambulating about his room. He reports that he is feeling much better. He denies any significant abdominal pain. He reports that the significant burping that he had been experiencing over the past couple of days has decreased substantially and he confirms a bowel movement earlier this morning. He denies any nausea or vomiting with his current diet, but also denies an appetite for more at this point. Lastly he expresses an earnest interest in discharge to home. Nursing reports that patient's heart rate has been elevated in the 130s to 140s this morning, but he is just been administered metoprolol. Sternberger denies any chest discomfort. Objective Data Objective Data Vital Signs: Vital Signs Temp Pulse Resp BP Pulse Ox O2 Del Method O2 Flow Rate 97.9 F 92 16 145/103 H 97 Room Air 2 07/24/22 04:10 07/24/22 08:05 07/24/22 04:10 07/24/22 04:15 07/24/22 04:10 07/24/22 04:15 07/21/22 12:22 Oxygen Flow Rate (L/min) 2 Oxygen Delivery Method Room Air Weight: 185 lb 13.595 oz Body Mass Index (BMI) 26.6 Intake & Output: Intake and Output for Last 24 Hours 07/22/22 07/23/22 07/24/22 23:59 23:59 23:59 Intake Total 2020 / 2020 200 / 300 100 / 100 Output Total 925 / 925 1050 / 1050 Balance 1095 / 1095 -850 / -750 100 / 100 Lab / Micro Data Result Diagrams: 07/22/22 05:31 07/22/22 05:31 Physical Exam Const oriented x3 and no apparent distress Resp normal respiratory effort GI GI Narrative: Nondistended, operative dressings in place with some serosanguineous strikethrough now dried on and laparotomy incision. Dressings are taken down and wounds appear appropriate without surrounding erythema or ongoing drainage. Steri-Strips remain intact. Patient's abdomen is soft and minimally tender to palpation x4 quadrants Assessment & Plan Assessment/Plan (1) Diverticular stricture: PLAN: Patient continues to do well postoperative day 3. Pain is well controlled. He tolerated his advanced to a full liquid diet and has experienced return of bowel function with both flatus and a bowel movement this morning. Given this progress, will advance further to a soft regular diet. Patient should be eligible for discharge later today, but would like to see heart rate responded favorably with recently dose of metoprolol. Anticipation of this discharge, postoperative expectations were reviewed.
--- NOTE | 2022-07-24 16:05 | DCINST_ITS ---
Discharge Instructions Diet Discharge Diet: Light diet - advance as tolerated Activity Discharge Activity: May Shower Lifting Restrictions: No lifting greater than 15 pounds for 2 weeks after surgery Dressing / Incision Call your doctor if your incision/area has: Continuous Slow Oozing, Sudden Increased Bleeding, Increased Pain/ Swelling, Increased Redness, Foul Smelling Discharge and Swelling at the incision site Call your doctor if you observe: Fever of 101 or Higher and Inability to have a bowel movement Cleanse incision/area with: Soap & Water Additional Dressing/Incision Instructions:: Please leave Steri-Strips intact until they fall off spontaneously or are taken off at your follow-up visit Follow Up Care Please Follow Up With: Brandon Bliss MD Test Results: Test results from this visit will be discussed in further detail at your follow- up appointment, if applicable. Discharge Plan Admission Admit Date/Time: 07/21/22 05:27 Primary Reason for Your Visit: Partial colectomy Attending Provider: Brandon Bliss Primary Care Provider: Len Shelton Discharge Orders/Prescriptions Prescriptions: New acetaminophen 500 mg Tablet 650 mg PO Q6 PRN (Reason: Pain) Qty: 0 0RF oxycodone 5 mg Tablet 5 - 10 mg PO Q4H PRN PRN (Reason: Pain Score 4-10/10) 5 Days Qty: 15 0RF Continued lisinopril 40 mg tablet 40 mg PO DAILY aspirin 81 mg tablet,delayed release (DR/EC) 81 mg PO DAILY metoprolol succinate 25 mg tablet extended release 24 hr 25 mg PO DAILY hydrochlorothiazide 12.5 mg tablet 12.5 mg PO DAILY Discontinued metronidazole 500 mg tablet 500 mg PO .COMPLEX Rx Instructions: Take 2 (two) tablets at 1300, 1500, 2300 the day prior to the procedure cephalexin 500 mg tablet 500 mg PO .COMPLEX Rx Instructions: Take Two (2) tablets at 1300, 1500, and 2300 pm the day prior to procedure Referrals / Follow Up: Len Shelton MD [Primary Care Provider] - Disposition Disposition (needs filled in before D/C Order can be placed): Home, Self Care
== END 2022-07-24 17:17 | disposition home or self-care (01) | DRG 331 ==
LOC: ACINP 05:48 → MS3 11:02
PROVIDERS: Anesthesiology; Urology; Admitting Provider Surgery; PCP Family Medicine; Referring Provider Surgery; Visit Provider Surgery
PROC: 0DTN0ZZ Resection of Sigmoid Colon, Open Approach (ICD-10-PCS; CPT 44204; principal; 2022-07-21 07:05)
PROC: 0T778DZ Dilation of Left Ureter with Intraluminal Device, Via Natural or Artificial Opening Endoscopic (ICD-10-PCS; CPT 52332; 2022-07-21 07:05)
DX: K56.690 Other partial intestinal obstruction (principal); Z53.31 Laparoscopic surgical procedure converted to open procedure; Z87.891 Personal history of nicotine dependence
CPT/HCPCS: 36415; 80048; 82962; 83735; 85027; 88304; 88307; 94668; 99252; J7030; J7120; A4216; C1760; C1769; G0463; J2405; J3475

== ENCOUNTER → 2023-04-21 | Outpatient (CLI) | payer BC, SELFPAY ==
--- NOTE | 2023-04-21 16:14 | CT_ITS ---
STUDY: CTA CHEST REASON FOR EXAM: Male, 58 years old. Evaluate Thoracic Aorta RADIATION DOSAGE (If Supplied By Facility): CTDIvol = ( 16.91 ) mGy, DLP = ( 420.29 ) mGycm TECHNIQUE: The examination was performed with the intravenous administration of IV 100mL Isovue-370. Post-processing of the angiographic images was performed, with multiplanar reformation and 3D reconstruction. Individualized dose optimization techniques were used for this CT. COMPARISON: No relevant prior comparison study available FINDINGS: PULMONARY ARTERIES: Normal enhancement of the main pulmonary artery and right and left pulmonary arteries. Normal enhancement of the bilateral peripheral pulmonary arteries. There is no demonstrated pulmonary embolism. AORTA: Normal thoracic aorta and visualized great vessels. There is no demonstrated aortic dissection. 3 cusped aortic valve with normal origins of the main coronary arteries. Coronary artery calcification present. The ascending thoracic aorta measures 3.8 cm. Normal three-vessel branching configuration of the arch. The descending thoracic aorta measures 2.7 cm. MEDIASTINUM: Normal heart and pericardium. Normal mediastinum. Normal hilar regions. LUNGS/PLEURA: Normal visualized trachea and bronchi. The lungs are well expanded. Mild dependent atelectasis bilaterally. No consolidation. No pulmonary nodules. Normal pleura. No pneumothorax. CHEST WALL: Normal chest wall structures. UPPER ABDOMEN: Normal visualized upper abdomen. OSSEOUS STRUCTURES: No acute or suspicious osseous abnormality. Degenerative changes throughout the spine. CT/CTA Chest W/WO Contrast IMPRESSION: Unremarkable appearance of the thoracic aorta. No dissection. No aneurysm. Electronically Signed: Cruz Bright MD at 6:38 EST ,
[2023-04-21 16:58] LABS: CREATININE FINGERSTICK 1.2 mg/dL (0.70-1.30); EGFR FINGERSTICK > 60.0000 mL/min (>60)
== END | disposition home or self-care (01) ==
PROVIDERS: PCP Family Medicine; Referring Provider Internal Medicine Cardiovascular Disease; Visit Provider Internal Medicine Cardiovascular Disease
DX: R06.09 Other forms of dyspnea (principal); I48.92 Unspecified atrial flutter; I10 Essential (primary) hypertension
CPT/HCPCS: 71275; Q9967

== ENCOUNTER → 2023-09-06 | Outpatient (CLI) | payer BC, SELFPAY ==
[2023-09-06 14:01] LABS: Cholesterol 211 mg/dL (200); High Density Lipoprotein 50 mg/dL; Triglycerides 128 mg/dL; Very Low Density Lipoprotein 26 mg/dL (5-40)
== END | disposition home or self-care (01) ==
LOC: LAB 12:02
PROVIDERS: PCP Family Medicine; Referring Provider Internal Medicine Cardiovascular Disease; Visit Provider Internal Medicine Cardiovascular Disease
DX: I25.10 Atherosclerotic heart disease of native coronary artery without angina pectoris (principal); E78.5 Hyperlipidemia, unspecified
CPT/HCPCS: 36415; 80061

== ENCOUNTER → 2024-03-21 | Outpatient (CLI) | payer BC, SELFPAY ==
[2024-03-21 13:23] LABS: ALB/GLOB Ratio 1.1 RATIO (0.9-2.4); AST(SGOT) 21 U/L (15-37); Alanine Aminotransfer ALT/SGPT 26 U/L (16-61); Alkaline Phosphatase 76 U/L (45-117); Anion Gap 8 (5-15); BUN 15 mg/dL (7-18); BUN/Creat Ratio 15.4 RATIO (10-20); Calcium,Total 9.5 mg/dL (8.5-10.1); Chloride 104 mmol/L (98-107); Cholesterol 163 mg/dL (200); Creatinine, Serum 0.97 mg/dL (0.70-1.30); EST Glomerular Filtration Rate 83 mL/min (>60); Est Glom Filt Rate - Afr Amer 101 mL/min (>60); Globulin 3.5 g/dL (2.2-4.2); Glucose 90 mg/dL (74-106); High Density Lipoprotein 57 mg/dL; Protein, Total 7.5 g/dL (6.4-8.2); Sodium Level 139 mmol/L (136-145); Triglycerides 122 mg/dL; Very Low Density Lipoprotein 24 mg/dL (5-40)
== END | disposition home or self-care (01) ==
LOC: LAB 11:39
PROVIDERS: PCP Family Medicine; Referring Provider Internal Medicine Cardiovascular Disease; Visit Provider Internal Medicine Cardiovascular Disease
DX: I48.92 Unspecified atrial flutter (principal); I25.10 Atherosclerotic heart disease of native coronary artery without angina pectoris; E78.5 Hyperlipidemia, unspecified; R06.09 Other forms of dyspnea; I10 Essential (primary) hypertension
CPT/HCPCS: 36415; 80053; 80061

== ENCOUNTER → 2024-10-02 | Outpatient (CLI) | payer BC, SELFPAY ==
[2024-10-02 10:04] LABS: Hematocrit 41.6 % (40-54); Hemoglobin 14.4 g/dL (13.0-16.5); Immature Granulocytes Count 0.040 X10^3/uL (0.0-0.0); Mean Corp Hgb Conc 34.6 g/dL (32-36); Mean Corpuscular Volume 95.0 fL (80-94); Mean Platelet Vol. 9.4 fl (6.2-12.0); NRBC Flagged by Analyzer 0 % (0-5); Platelet Count 241 K/mm3 (150-450); RBC Distribution Width CV 13.8 % (11.6-14.6); RBC Distribution Width SD 48.4 fl (35.1-43.9); Red Blood Count 4.38 M/mm3 (4.6-6.2); White Blood Count 10.0 K/mm3 (4.4-11.0)
[2024-10-02 10:44] LABS: AST(SGOT) 21 U/L (<=37); Alanine Aminotransfer ALT/SGPT 18 U/L (<=46); Albumin, Serum 4.4 g/dL (3.4-4.8); Alkaline Phosphatase 71 U/L (40-129); Bilirubin, Direct 0.23 mg/dL (0.00-0.30); Cholesterol 150 mg/dL (<=200); Globulin 2.8 g/dL (2.2-4.2); Low Density Lipoprotein Calc. 65 mg/dL; Triglycerides 146 mg/dL; Very Low Density Lipoprotein 29 mg/dL (5-40); cholesterol:hdl ratio screen 2.69
== END | disposition home or self-care (01) ==
LOC: LAB 09:33
PROVIDERS: PCP Family Medicine; Referring Provider Student in an Organized Health Care Education/Training Program; Visit Provider Student in an Organized Health Care Education/Training Program
DX: I10 Essential (primary) hypertension (principal); E78.5 Hyperlipidemia, unspecified
CPT/HCPCS: 36415; 80061; 80076; 85025